=== PATIENT | male | born 1965 | race Caucasian/White ===

== ENCOUNTER 2021-05-23 08:18 | Outpatient (CLI) | payer OTHER, SELFPAY ==
[2021-05-23 19:12] LABS: Basophils Absolute Auto 0.1 K/mm3 (0.0-0.1); Basophils Percent Auto 1.2 % (0.2-1.2); Eosinophils Absolute Auto 0.3 K/mm3 (0-0.3); Eosinophils Percent Auto 6.4 % (0-4.4); Hematocrit 47.1 % (42.0-52.0); Hemoglobin 15.8 g/dL (14.0-18.0); Immature Granulocyte Absolute 0.01 K/mm3 (0.00-0.031); Immature Granulocyte Percent A 0.2 % (0-0.5); Lymphocytes Absolute Auto 1.76 K/mm3 (0.9-3.2); Lymphocytes Percent Auto 34.2 % (18.3-44.2); Mean Corpuscular HGB Conc 33.5 g/dl (32-36); Mean Corpuscular Hemoglobin 30.8 pg (26-34); Mean Corpuscular Volume 91.8 fl (80-100); Mean Platelet Volume 9.4 fl (7.4-10.4); Monocytes Absolute Auto 0.4 K/mm3 (0.1-0.6); Monocytes Percent Auto 8.6 % (2.6-8.5); Neutrophils Absolute Auto 2.5 K/mm3 (1.3-6.7); Neutrophils Percent Auto 49.4 % (45.5-73.1); Platelet Count Result 257 k/mm3 (150-375); Red Blood Count 5.13 M/mm3 (4.6-6.20); Red Cell Distribution Width 12.4 % (11.5-14.5); White Blood Count 5.1 K/mm3 (4.5-10.0)
[2021-05-23 19:18] LABS: Alanine Aminotransferase 45 U/L (4-50); Albumin Level 4.3 g/dL (3.5-5.1); Alkaline Phosphatase 73 U/L (38-126); Anion Gap 8 mmol/L (8-16); Aspartate Amino Transferase 44 U/L (17-59); Bilirubin,Total 0.7 mg/dL (0.2-1.3); Blood Urea Nitrogen 18 mg/dL (9-20); Calcium 9.7 mg/dL (8.4-10.2); Carbon Dioxide 25 mmol/L (22-30); Chloride 105 mmol/L (98-107); Cholesterol 246 mg/dL (0-200); Estimated Glomerular Filt Rate > 60; Glucose 108 mg/dL (65-110); HDL Direct 52 mg/dL; Potassium 4.7 mmol/L (3.4-5.0); Sodium 138 mmol/L (137-145); Triglycerides 98 mg/dL (<150)
[2021-05-23 19:29] LABS: LDL Cholesterol Direct 169 mg/dL
[2021-05-23 19:47] LABS: Prostate Specific Antigen 1.7 ng/mL (< OR = 4.0)
== END 2021-05-23 08:19 | disposition home or self-care (01) ==
LOC: ANHBWCLAB 08:20
PROVIDERS: PCP Family Medicine; Visit Provider Family Medicine
DX: Z00.00 Encounter for general adult medical examination without abnormal findings (principal)
CPT/HCPCS: 36415; 80053; 80061; 84153; 85025; G0103

== ENCOUNTER → 2021-09-09 01:51 | Outpatient (CLI) | payer OTHER, SELFPAY ==
[2021-09-09 12:51] LABS: SARS-CoV-2 RNA PCR Negative
== END ==
PROVIDERS: PCP Family Medicine; Visit Provider Internal Medicine Gastroenterology
DX: Z01.812 Encounter for preprocedural laboratory examination (principal); Z20.822 Contact with and (suspected) exposure to COVID-19
CPT/HCPCS: C9803; U0003; U0005

== ENCOUNTER 2021-09-12 00:30 | Day surgery (SDC) | payer OTHER, SELFPAY ==
[2021-09-04 10:27] VITALS: BMI 32.3
[2021-09-12 08:39] VITALS: BP 155/99; PULSE 90; RESP 16; TEMP 36.2; O2SAT 98
[2021-09-12] MEDS: LACTATED RINGERS 1,000 ML 150 ML IV CONT (08:52)
--- NOTE | 2021-09-12 09:07 | P.PNAN_ITS ---
Anes - Initial Pre Proc Eval Procedure: Operation Date: 09/12/21 10:00 Proposed Procedures p Screening Colonoscopy - Stu Styles MD s [facility] Hemorrhoid Treatment - Stu Styles MD Date/Time: 09/12/21 09:07 Surgeon: Stu Styles MD Pre Op Diagnosis: hemorrhoids, hx of colon polyps Patient Data Age: 55 Gender: M Height: 1.68 m Weight: 92.7 kg Last Vital Signs Temp 36.2 C L 09/12/21 08:39 Pulse 90 09/12/21 08:39 Resp 16 09/12/21 08:39 BP 155/99 H 09/12/21 08:39 Pulse Ox 98 09/12/21 08:39 Allergies Allergy/AdvReac Type Severity Reaction Status Date / Time No Known Allergies Allergy Verified 09/12/21 08:35 Home Medications Medication Instructions Recorded Confirmed Type cholecalciferol (vitamin D3) 125 125 mcg PO DAILY 04/23/21 09/12/21 History mcg (5,000 unit) tablet naproxen sodium 220 mg capsule 220 mg PO BID PRN 04/23/21 09/12/21 History Patient hx anesthesia problems: none Family hx anesthesia problems: none Results Review: All pre-operative results and documents have been reviewed as part of the pre-operative evaluation. [facility] Past Medical History Medical History (Updated 09/12/21 @ 09:07 by Navid Rae MD) Colon polyp Obesity Surgical History Surgical History H/O hernia repair Family History Family History Father Malignant neoplasm of prostate Lung cancer Hypertension Aortic aneurysm Mother Breast cancer Hypertension Grandparent Lung cancer Social History Social History Smoking status: Never smoker Alcohol intake: current Drinks per week: 10 Alcohol use details: socially-moderate Substance use: never Substance use type: does not use Living arrangements: with family Gender identity (if verbalized by the patient): Male Spiritual care concerns: No Anes - Eval Final PreProcedure Day of Procedure 09/12/21 09:07 Patient weight: obese Heart: regular rate and rhythm Lungs: clear to auscultation Airway: Mallampati scale class II Neurological: alert and oriented Last oral intake: >/= 8 hours ASA classification: II Emergent: no Anesthetic plan: proceed Anesthesia type and monitoring: general GIVS and standard monitoring Results Review: All pre-operative results and documents have been reviewed as part of the pre-operative evaluation. Informed Consent: The patient's anesthetic plan and its attendant risks and benefits were discussed with the patient/family/POA. Questions were solicited and answers provided to the satisfaction of the patient/family/POA.
--- NOTE | 2021-09-12 09:10 | PM.HPGS ---
History of Present Illness History of Present Illness Consent: Risks, benefits, and alternatives have been discussed and questions answered. Patient agrees to proceed with procedure. Chief complaint: hemorrhoids, hx of colon polyps Narrative: Kj Savage is a 55 year old male with colon polyp 5 years ago, also symptomatic hemorrhoids. Review of Systems Constitutional: Constitutional: Denies headache(s) and Denies weakness Eyes: Eyes: Denies blurry vision ENT: Reports Normal hearing present, Denies headache(s) and Denies neck pain Cardiovascular: Cardiovascular: Denies chest pain and Denies dyspnea Respiratory: Respiratory: Denies dyspnea Gastrointestinal: Gastrointestinal: Reports no additional gastrointestinal complaints Genitourinary: Genitourinary: Denies dysuria Musculoskeletal: Musculoskeletal: Denies neck pain Integumentary/Breasts: Skin/Breast: Denies dry skin Neurologic: Reports Normal hearing present, Denies headache(s) and Denies weakness Psychiatric: Psychiatric: Denies anxiety Endocrine: Endocrine: Denies change in body appearance Hematologic/Lymphatic: Hematologic/Lymphatic: Denies easy bleeding Allergic/Immunologic: Allergic/Immunologic: Denies urticaria [facility] Past Medical History Medical History (Updated 09/12/21 @ 09:07 by Navid Rae MD) Colon polyp Obesity Surgical History Surgical History H/O hernia repair Family History Family History Father Malignant neoplasm of prostate Lung cancer Hypertension Aortic aneurysm Mother Breast cancer Hypertension Grandparent Lung cancer Social History Social History Smoking status: Never smoker Alcohol intake: current Drinks per week: 10 Alcohol use details: socially-moderate Substance use: never Substance use type: does not use Living arrangements: with family Gender identity (if verbalized by the patient): Male Spiritual care concerns: No Meds Home Medications and Allergies Home Medications Medication Instructions Recorded Confirmed Type cholecalciferol (vitamin D3) 125 125 mcg PO DAILY 04/23/21 09/12/21 History mcg (5,000 unit) tablet naproxen sodium 220 mg capsule 220 mg PO BID PRN 04/23/21 09/12/21 History Allergies Allergy/AdvReac Type Severity Reaction Status Date / Time No Known Allergies Allergy Verified 09/12/21 08:35 Vital Signs Vital Signs - 24 hr 09/12/21 08:39 Temperature 97.1 F L Pulse Rate 90 Respiratory Rate 16 Blood Pressure 155/99 H Pulse Oximetry 98 Exam Const: General: comfortable and no acute distress HENMT: General nose exam: Normal nares present Eyes: General: appearance normal, both eyes and all related structures Neck: Neck: no JVD Resp: Auscultation: clear to auscultation bilaterally Cardio: Rate: regular rate Rhythm: regular rhythm GI: Inspection: non-distended GI Palp: Yes Soft to palpation Skin: General skin exam: normal color Neuro: General: gait normal Speech: normal speech Extrem: General: normal to inspection Psych: Mental Status: mental status grossly normal Assessment and Plan Assessment and plan (1) Colon polyp: Code(s): K63.5 - Polyp of colon Status: Acute Assessment and Plan: colonoscopy (2) Hemorrhoid: Code(s): K64.9 - Unspecified hemorrhoids Status: Acute Assessment and Plan: IRC treatment
--- NOTE | 2021-09-12 09:37 | W.PM.PROC2 ---
Procedure Note - Detailed Date of Procedure 09/12/21 Pre-op Diagnosis hemorrhoids, hx of colon polyps Post-op Diagnosis Same Procedure Performed IRC of internal hemorrhoids Surgeon Stu Styles MD Indications hemorrhoids Description of Procedure found grade II internal hemorrhoids at 3 o'clock position, no fissure. Then I introduced anoscope and advanced IRC probe, hemorrhoids treated at 1.5 seconds x5. No complications.
[2021-09-12 09:39] VITALS: BP 119/78; PULSE 81; RESP 17; O2SAT 94
[2021-09-12 09:49] VITALS: BP 119/87; PULSE 81; RESP 16; O2SAT 96
[2021-09-12 09:59] VITALS: BP 143/99; PULSE 73; RESP 18; O2SAT 98
== END 2021-09-12 10:09 | disposition home or self-care (01) ==
PROVIDERS: PCP Family Medicine; Visit Provider Internal Medicine Gastroenterology
PROC: 0DJD8ZZ Inspection of Lower Intestinal Tract, Via Natural or Artificial Opening Endoscopic (ICD-10-PCS; CPT 45378; principal; 2021-09-12 10:00)
PROC: (CPT 46930; 2021-09-12 10:00)
DX: Z12.11 Encounter for screening for malignant neoplasm of colon (principal); K64.1 Second degree hemorrhoids; D12.0 Benign neoplasm of cecum; K62.89 Other specified diseases of anus and rectum; K63.5 Polyp of colon; K57.30 Diverticulosis of large intestine without perforation or abscess without bleeding; K64.8 Other hemorrhoids; E66.9 Obesity, unspecified; Z68.33 Body mass index [BMI] 33.0-33.9, adult
CPT/HCPCS: 45380; 45385; 46930; 88305; C9803; J2704; J7120; U0003; U0005

== ENCOUNTER → 2023-01-22 01:04 | Day surgery (SDC) | payer OTHER, SELFPAY ==
[2023-01-20 14:34] VITALS: BMI 32.3
[2023-01-22 11:20] VITALS: BP 138/88; PULSE 82; RESP 18; TEMP 36.2; O2SAT 97
--- NOTE | 2023-01-22 11:30 | WPDHPUPDATE1 ---
History and Physical Update Update Date/Time: 01/22/23 11:30 History and Physical has been reviewed, including an updated exam of the patient. There are NO changes in the patient's condition. Risks, benefits, and alternatives have been discussed and questions answered. Patient agrees to proceed with procedure.
--- NOTE | 2023-01-22 11:31 | W.PM.PROC2 ---
Procedure Note - Detailed Date of Procedure 01/22/23 Pre-op Diagnosis unspecified hemorrhoids Post-op Diagnosis Same Procedure Performed IRC of internal hemorrhoids Surgeon Stu Styles MD Anesthesia None Description of Procedure noted large external hemorrhoids, no fissure. Then with anoscope found grade II internal hemorrhoids, no bleeding. Advanced IRC probe, hemorrhoid treated x5 at 1.5 seconds each time If does not help then patient to call office in 2-3 weeks and will refer to surgery
== END | disposition home or self-care (01) ==
PROVIDERS: PCP Family Medicine; Visit Provider Internal Medicine Gastroenterology
PROC: (CPT 46930; principal; 2023-01-22 13:00)
DX: K64.8 Other hemorrhoids (principal)
CPT/HCPCS: 46930

== ENCOUNTER 2023-03-03 08:41 | Outpatient (CLI) | payer OTHER, SELFPAY ==
[2023-03-03 18:31] LABS: Hematocrit 49.2 % (42.0-52.0); Hemoglobin 15.8 g/dL (14.0-18.0); Mean Corpuscular HGB Conc 32.1 g/dl (32-36); Mean Corpuscular Hemoglobin 29.9 pg (26-34); Mean Corpuscular Volume 93.2 fl (80-100); Mean Platelet Volume 9.2 fl (7.4-10.4); Platelet Count Result 280 k/mm3 (150-375); Red Blood Count 5.28 M/mm3 (4.6-6.20); Red Cell Distribution Width 12.2 % (11.5-14.5); White Blood Count 5.7 K/mm3 (4.5-10.0)
[2023-03-03 19:08] LABS: Alanine Aminotransferase 58 U/L (6-50); Albumin Level 4.4 g/dL (3.5-5.1); Alkaline Phosphatase 90 U/L (38-126); Anion Gap 7 mmol/L (8-16); Aspartate Amino Transferase 63 U/L (17-59); Bilirubin,Total 0.9 mg/dL (0.2-1.3); Blood Urea Nitrogen 15 mg/dL (9-20); Calcium 9.4 mg/dL (8.4-10.2); Carbon Dioxide 26 mmol/L (22-30); Chloride 103 mmol/L (98-107); Cholesterol 264 mg/dL (0-200); Estimated Glomerular Filt Rate > 60; Glucose 90 mg/dL (65-110); HDL Direct 47 mg/dL; Potassium 4.5 mmol/L (3.4-5.0); Sodium 136 mmol/L (137-145); Triglycerides 145 mg/dL (<150)
[2023-03-03 19:23] LABS: LDL Cholesterol Direct 153 mg/dL
[2023-03-03 19:38] LABS: Prostate Specific Antigen 2.2 ng/mL (< OR = 4.0)
== END 2023-03-03 08:42 | disposition home or self-care (01) ==
LOC: ANHBWCLAB 08:42
PROVIDERS: PCP Family Medicine; Visit Provider Family Medicine
DX: Z00.00 Encounter for general adult medical examination without abnormal findings (principal)
CPT/HCPCS: 36415; 80053; 80061; 84153; 85027; G0103

== ENCOUNTER 2023-04-23 14:51 | Emergency (ER) | payer OTHER, SELFPAY ==
--- NOTE | ~2023-04-23 | XR_ITS ---
EXAMINATION: XR hand LT min 3V DATE: 04/23/2023 15:11 INDICATION: Left hand injury and pain. Third metacarpal pain. TECHNIQUE: 3 views of left hand were obtained. COMPARISON: None. FINDINGS: Bone alignment is normal. No acute fracture. There is an old healed fracture of neck of fif th metacarpal. There is mild osteoarthritis of fifth metacarpophalangeal joint, first interphalangeal joint, fourth proximal interphalangeal joint, and second and fourth distal interphalangeal joints. T here is moderate osteoarthritis of fifth distal interphalangeal joint. There is a fragment of heterot opic ossification at the radial aspect of head of first metacarpal. IMPRESSION: 1. Polyarticular osteoarthritis. Reviewed, dictated and finalized at location E. BARKER OPERATOR
[2023-04-23 15:00] VITALS: BP 155/88; PULSE 106; RESP 16; TEMP 37.2; O2SAT 98
--- NOTE | 2023-04-23 15:12 | PC.NURSE ---
PT DECLINED ICE FOR COMFORT
--- NOTE | 2023-04-23 15:37 | ED.GENADULT ---
HPI - General Adult General Chief complaint: Extremity Injury, Upper Stated complaint: Left Hand Injury Time Seen by Provider: 04/23/23 15:37 Source: patient Mode of arrival: ambulatory Limitations: no limitations History of Present Illness HPI narrative: 57-year-old male presents to [facility] with complaints abrasion with scabbing to the left 3rd finger knuckle area andhe swelling of left dorsal hand which occurred last night. He reports that he fell last night tripped over the dog and hit his left hand on the brick wall in the garage. Patient has redness and swelling to the dorsal aspect of his left hand with scabbed abrasion over the 3rd knuckle. Patient has full mobility of his left hand but with some discomfort. MD complaint: injury left hand Onset (ago): day(s) (last night) Location: left and upper extremity (hand) Severity: moderate Quality: aching Treatments prior to arrival: cold therapy Related Data Allergies Allergy/AdvReac Type Severity Reaction Status Date / Time No Known Allergies Allergy Verified 04/23/23 15:05 Review of Systems Review of Systems: CONSTITUTIONAL: Denies fever, chills, or sweats. EYES: Denies visual changes, redness, or discharge. ENT: Denies rhinorrhea, congestion, sore throat, or otalgia. CARDIOVASCULAR: Denies chest pain, palpitations, or edema. RESPIRATORY: Denies cough or dyspnea. GASTROINTESTINAL: Denies abdominal pain, nausea, vomiting, or diarrhea. GENITOURINARY: Denies dysuria or hematuria. SKIN: Denies rash or itching. MUSCULOSKELETAL: Denies back pain, positive for swelling redness and discomfort of left hand, or myalgia. NEUROLOGIC: Denies headache, numbness, or weakness. PSYCHIATRIC: Denies anxiety or depression. All systems reviewed & are unremarkable except as noted in HPI and below PMFSH Past Medical History Medical History Colon polyp HLD (hyperlipidemia) Hypertension Obesity Surgical History Surgical History H/O hernia repair Family History Family History Father Malignant neoplasm of prostate Lung cancer Hypertension Aortic aneurysm Mother Breast cancer Hypertension Grandparent Lung cancer Social History Social History Smoking status: Never smoker Alcohol intake: current Drinks per week: 10 Alcohol use details: socially-moderate Substance use: never Substance use type: does not use Lack of Transportation: No Lack of Food: Never True Current Housing: I Have Housing Concerned About Future Housing: No Difficulty Paying Gas/Electric Bills: No Difficulty Paying for Meds: No Currently Unemployed: No Education: High School Diploma/GED Difficulty w/ Childcare or Family Care: No Living arrangements: with family Gender identity (if verbalized by the patient): Male Spiritual care concerns: No Comments At time of signature, agree with nursing past medical, surgical, social and family history. There is no relevant family history pertinent to the presenting complaint Exam Narrative: GENERAL: Well-appearing, well-nourished, and in no acute distress. HEAD: Normocephalic, atraumatic. EYES: PERRLA and EOMI. ENT: Nares clear, no rhinorrhea or epistaxis. Mucous membranes moist. NECK: Supple.no lymphadenopathy CHEST: Clear to auscultation. No respiratory distress.SAO2 98% on room air HEART: Regular rate and rhythm. No murmur heard. Normal peripheral pulses. ABDOMEN: Soft, nontender, nondistended, normal active bowel sounds. EXTREMITIES: Normal range of motion. No edema.Exception noted to pain and swelling of dorsal left hand with some redness noted also to hand, healing abrasion along 3rd knuckle. circulation sensation and mobility intact. SKIN: Warm, dry, no rash. NEURO: No focal deficits. Alert and orien
[2023-04-23] MEDS: TETANUS,DIPHTHERIA,AC PERTUSSIS ADULT (0.5 ML) BOOSTRIX IM (15:54)
== END 2023-04-23 16:00 | disposition home or self-care (01) ==
PROVIDERS: Emergency Provider Registered Nurse; PCP Family Medicine
DX: S60.512A Abrasion of left hand, initial encounter (principal); E78.5 Hyperlipidemia, unspecified; I10 Essential (primary) hypertension; Z23 Encounter for immunization; W01.198A Fall on same level from slipping, tripping and stumbling with subsequent striking against other object, initial encounter
CPT/HCPCS: 73130; 90471; 90715; 99213; G0463

== ENCOUNTER 2025-01-04 08:47 | Outpatient (CLI) | payer OTHER, SELFPAY ==
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
--- OUTSIDE RECORDS SUMMARY | 2025-01-04 09:00 | XMS_ITS | Encounter Summary ---
Author Organization [facility] Address 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
--- OUTSIDE RECORDS SUMMARY | 2025-01-04 09:00 | XMS_ITS | Encounter Summary ---
Author Organization [facility] Address 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 Gender Identity Not on file Sexual Orientation Not on file documented as of this encounter Last Filed Vital Signs Vital Sign Reading Time Taken Comments Blood Pressure 140/80 07/02/2005 11:15 AM HADOOP CONSULTANT Pulse - - Temperature 38 C (100.4 F) 07/02/2005 11:15 AM HADOOP CONSULTANT Respiratory Rate - - Oxygen Saturation - - Inhaled Oxygen Concentration - - Weight 85.3 kg (188 lb) 07/02/2005 11:15 AM HADOOP CONSULTANT Height 167.6 cm (5' 6) 07/02/2005 11:15 AM HADOOP CONSULTANT Body Mass Index 30.34 07/02/2005 11:15 AM HADOOP CONSULTANT documented in this encounter Plan of Treatment Not on file documented as of this encounter Visit Diagnoses Not on filedocumented in this encounter
--- OUTSIDE RECORDS SUMMARY | 2025-01-04 09:00 | XMS_ITS | Encounter Summary ---
Author Organization [facility] Address 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
--- OUTSIDE RECORDS SUMMARY | 2025-01-04 09:00 | XMS_ITS | Encounter Summary ---
Author Organization [facility] Address 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
--- OUTSIDE RECORDS SUMMARY | 2025-01-04 09:00 | XMS_ITS | Clinical Summary ---
Author Organization [facility] Address [address] Attn: Epic Prelude ADT LYNDSEY COFFEY [address] Care Team Providers Care Sales Representative Public Utilities Name Role Phone Unavailable Primary Care Provider Unavailabl e Allergies Active Allergy Reactions Criticality Noted Date Comments No Known Allergies 07/02/2005 Medications PREVACID 30 MG CAP 1 Every Day 60.00 0 08/13/2005 Active LEVAQUIN 500 MG TAB 1 Every Day 10.00 0 07/02/2005 Active ZOCOR 10 MG TAB 1 Every Day 30.00 4 08/13/2005 Active Active Problems Problem Noted Date Diagnosed Date Unspecified disorder of prostate 08/13/2005 Other and unspecified hyperlipidemia 08/13/2005 Esophageal reflux 08/13/2005 Need for prophylactic vaccin ation with tetanus-diphtheria (Td) 08/13/2005 Screening for malignant neoplasm of the rectum 0 08/13/2005 Diarrhea 07/02/2005 Acute sinusitis, unspecified 07/02/2005 Elevated blood pressure read ing without diagnosis of hypertension 07/02/2005 Family history of malignant neoplasm of prostate 07/02/2005 Screening for thyroid disorder 07/02/2005 Special screening for malignant neoplasm of pros morales 07/02/2005 Screening for lipoid disorders 07/02/2005 Immunizations Immunization Administration Dates Next Due (TDVAX)(7 YRS UP) TETANUS AN D DIPHTHERIA TOXOIDS, ADSORBED (2 LF OF TETANUS TOXOID AND 2 LF OF DIPHTHERIA TOXOID), 0.5ML (PF), IM 08/13/2005 Social History Tobacco Use Types Packs/Day Years Used Date Smoking Tobacco: Never Assessed Sex and Gender Information Value Date Recorded Sex Assigned at Not on file 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 Gender Identity Not on file Sexual Orientation Not on file Last Filed Vital Signs Vital Sign Reading Time Taken Comments Blood Pressure 140/80 07/02/2005 11:15 AM FRENCH PASTRY COOK Pulse - - Temperature 38 C (100.4 F) 07/02/2005 11:15 AM FRENCH PASTRY COOK Respiratory Rate - - Oxygen Saturation - - Inhaled Oxygen Concentration - - Weight 85.3 kg (188 lb) 07/02/2005 11:15 AM FRENCH PASTRY COOK Height 167.6 cm (5' 6) 07/02/2005 11:15 AM FRENCH PASTRY COOK Body Mass Index 30.34 07/02/2005 11:15 AM FRENCH PASTRY COOK Plan of Treatment Health Maintenance Due Date Last Done Comments DTAP/TDAP/TD VACCINES (1 - Tdap) 08/14/2005 08/14/19 06 COLORECTAL SCREENING 10/18/2008 Colorectal Cancer Screening 10/18/2008 FIT-DNA Q 3 years 10/18/2008 FIT/FOBT Q 1 year 10/18/2008 08/13/2005 Flex Sig/CT Colonography Q 5 years 10/18/2008 ZOSTER VACCINE (1 of 2) 10/18/2013 INFLUENZA VACCINE (#1) 2024 RSV VACCINE (60+ or ) (1 - 1-dose 75+ series) 10/18/2038
[2025-01-04 18:35] LABS: Hematocrit 48.2 % (42.0-52.0); Hemoglobin 15.7 g/dL (14.0-18.0); Mean Corpuscular HGB Conc 32.6 g/dl (32-36); Mean Corpuscular Hemoglobin 30.1 pg (26-34); Mean Corpuscular Volume 92.5 fl (80-100); Platelet Count Result 259 k/mm3 (150-375); Red Blood Count 5.21 M/mm3 (4.6-6.20); White Blood Count 5.8 K/mm3 (4.5-10.0)
[2025-01-04 19:38] LABS: Alanine Aminotransferase 36 U/L (6-50); Albumin Level 4.5 g/dL (3.5-5.1); Alkaline Phosphatase 74 U/L (38-126); Anion Gap 8 mmol/L (4-12); Aspartate Amino Transferase 53 U/L (17-59); Bilirubin,Total 0.8 mg/dL (0.2-1.3); Blood Urea Nitrogen 19 mg/dL (9-20); Calcium 9.7 mg/dL (8.4-10.2); Carbon Dioxide 23 mmol/L (22-30); Chloride 104 mmol/L (98-107); Cholesterol 279 mg/dL (0-200); Estimated Glomerular Filt Rate > 60; Glucose 101 mg/dL (65-110); HDL Direct 59 mg/dL; Potassium 4.4 mmol/L (3.4-5.0); Sodium 135 mmol/L (137-145); Total Protein 7.7 g/dL (6.3-8.2); Triglycerides 119 mg/dL (<150)
[2025-01-04 20:15] LABS: Prostate Specific Antigen 1.9 ng/mL (< OR = 4.0)
[2025-01-04 20:33] LABS: Vitamin B12 565.0 pg/mL (239-931)
[2025-01-12 03:07] LABS: Free Testosterone (Direct) 6.7 pg/mL (6.6-18.1)
== END 2025-01-04 08:48 | disposition home or self-care (01) ==
LOC: ANHBWCLAB 08:47
PROVIDERS: PCP Family Medicine; Visit Provider Family Medicine
DX: E78.5 Hyperlipidemia, unspecified (principal); I10 Essential (primary) hypertension; E66.9 Obesity, unspecified; R74.8 Abnormal levels of other serum enzymes; R68.82 Decreased libido; Z00.00 Encounter for general adult medical examination without abnormal findings
CPT/HCPCS: 36415; 80053; 80061; 82306; 82607; 84153; 84402; 84403; 85027; G0103

== ENCOUNTER 2025-01-04 14:09 | Outpatient (CLI) | payer OTHER, SELFPAY ==
--- NOTE | ~2025-01-04 | MR_ITS ---
MRA HEAD History: Family history ischemic heart disease Technique: 3D time of flight MRA of the head is performed. Findings: The right and left distal vertebral arteries and the basilar and posterior cerebral arteries are normal. Right and left distal internal carotid arteries and anterior and middle cerebral arteries are normal. There is no aneurysm, stenosis, or occlusion. Impression: No occlusion, stenosis, or aneurysm. Reviewed, dictated and finalized at location . Impression: No occlusion, stenosis, or aneurysm.
--- OUTSIDE RECORDS SUMMARY | 2025-01-04 14:23 | XMS_ITS | Clinical Summary ---
Author Organization [facility] Address 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 Gender Identity Not on file Sexual Orientation Not on file Last Filed Vital Signs Vital Sign Reading Time Taken Comments Blood Pressure 140/80 07/02/2005 11:15 AM DOUBLE HEAD MACHINE OPERATOR Pulse - - Temperature 38 C (100.4 F) 07/02/2005 11:15 AM DOUBLE HEAD MACHINE OPERATOR Respiratory Rate - - Oxygen Saturation - - Inhaled Oxygen Concentration - - Weight 85.3 kg (188 lb) 07/02/2005 11:15 AM DOUBLE HEAD MACHINE OPERATOR Height 167.6 cm (5' 6) 07/02/2005 11:15 AM DOUBLE HEAD MACHINE OPERATOR Body Mass Index 30.34 07/02/2005 11:15 AM DOUBLE HEAD MACHINE OPERATOR Plan of Treatment Health Maintenance Due Date [...]
--- OUTSIDE RECORDS SUMMARY | 2025-01-04 14:23 | XMS_ITS | Encounter Summary ---
Author Organization [facility] Address 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
--- OUTSIDE RECORDS SUMMARY | 2025-01-04 14:23 | XMS_ITS | Encounter Summary ---
Author Organization [facility] Address 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 [address] D.O.B: 1965 SSN: [id number] Parent/Guardian if applicable: Patient Insurance: [employer] ID#: [id number] Group/Policy#: [id number] Best To Call : Best Time to Call : AFTERNOON. May We Leave Message At That Number : YES, LEAVE MESSAGE. Referring to: GASTROENTEROLOGY Dr. Jone Hernandez ([phone]) REASON FOR REFERRAL: endoscopy PATIENT DIAGNOSIS: . 530.81-GASTROESOPHAGEAL REFLUX (GERD) REFERRING PHYSICIAN : KHANH BERMAN MD PRIORITY OF REFERRAL: AT PATIENT'S CONVENIENCE. OFFICE ACADEMIC REGISTRAR & PHONE : ana paula [phone] FOR SCHEDULING USE ONLY: FIRST ATTEMPT Date:AUG 14, 2005 Nisha Cruz J 08:48 a Left message on Recorder. First Attempt :. at home in box [facility] SECOND ATTEMPT: Date:AUG 17, 2005 Cindy Burgos 08:23 a Spoke with Patient. TRANSFERRED PT TO DR GUERIN'S OFFICE NISHA HAD FAXED THE REQUEST OVER 08-14-05 THEY PREFER WE FAX THE REQUEST OVER VERSES CALLING THEM PT WILL CALL BACK W DATE SCHEDULED APPOINTMENT DATE : 09/15/2005 ( w dr florentino guerin) [facility] NN SM * Khanh Berman MD - [...] not have a living will. 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 LAB ORDERS: 3 mo Order number: [id number] Test Ordered: LIPID PANEL 7600 Order number: [id number] Test Ordered: ALT 823 530.81-GASTROESOPHAGEAL REFLUX (GERD) start med, egd, reassess MEDICATIONS: PREVACID ORAL CAPSULE DELAYED RELEASE 30 MG, 1 Every Day, 60 Dispensed, status: NEW PRESCRIPTION, 08/13/2005. SPECIALTY REFERRAL: GASTROENTEROLOGY [facility] for EGD, ---chronic GERD RETURN VISIT : Patient instructed to return in 3 months. Electronically Signed by: Khanh Berman MD on July documented in this encounter Plan of Treatment Not on file documented as of this encounter Visit Diagnoses Not on filedocumented in this encounter
--- OUTSIDE RECORDS SUMMARY | 2025-01-04 14:23 | XMS_ITS | Encounter Summary ---
Author Organization [facility] Address 

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
--- OUTSIDE RECORDS SUMMARY | 2025-01-04 14:23 | XMS_ITS | Encounter Summary ---
Author Organization [facility] Address [address] [place] [address] Care Team Providers Care Firer Kiln Name Role Phone Unavailable Primary Care Provider Unavailabl e Encounter Details Date Type Department Care Team (Late st Contact Info) Description 07/02/[address] [facility] Internal Medicine [address] [address] Cristopher Rueda MD [address] [place] [phone] Social History Tobacco Use Types Packs/Day Years Used Date Smoking Tobacco: Never Assessed Sex and Gender Information Value Date Recorded Sex Assigned at Not on file Legal Sex Male 3:27 AM VENEER JOINTER Gender Identity Not on file Sexual Orientation Not on file documented as of this encounter Last Filed Vital Signs Vital Sign Reading Time Taken Comments Blood Pressure 140/80 07/02/2005 11:15 AM VENEER JOINTER Pulse - - Temperature 38 C (100.4 F) 07/02/2005 11:15 AM VENEER JOINTER Respiratory Rate - - Oxygen Saturation - - Inhaled Oxygen Concentration - - Weight 85.3 kg (188 lb) 07/02/2005 11:15 AM VENEER JOINTER Height 167.6 cm (5' 6) 07/02/2005 11:15 AM VENEER JOINTER Body Mass Index 30.34 07/02/2005 11:15 AM VENEER JOINTER documented in this encounter Plan of Treatment Not on file documented as of this encounter Visit Diagnoses Not on filedocumented in this encounter
--- OUTSIDE RECORDS SUMMARY | 2025-01-04 14:23 | XMS_ITS | Encounter Summary ---
Author Organization [facility] Address [address] [place] [address] Care Team Providers Care Retail Analytics Manager Name Role Phone Unavailable Primary Care Provider Unavailabl e Encounter Details Date Type Department Care Team (Late st Contact Info) Description 08/13/2005 Outpatient Historical [facility] Internal Medicine [address] [address] Cristopher Rueda MD [address] [place] [phone] Social History Tobacco Use Types Packs/Day Years Used Date Smoking Tobacco: Never Assessed Sex and Gender Information Value Date Recorded Sex Assigned at Not on file Legal 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
== END 2025-01-04 14:10 | disposition home or self-care (01) ==
PROVIDERS: PCP Family Medicine; Visit Provider Family Medicine
DX: Z82.49 Family history of ischemic heart disease and other diseases of the circulatory system (principal)
CPT/HCPCS: 36415; 70544; 80053; 80061; 82306; 82607; 84153; 85027; G0103